=== PATIENT | male | born 1985 | race Caucasian/White ===

== ENCOUNTER 2017-10-14 12:41 | Emergency (ER) | payer OTHER ==
[~2017-10-14] VITALS: Ht 182.9 cm; Wt 90.7 kg
[~2017-10-14 12:41] MED LIST: GILTUSS TR TAB1 EACH PO; ZITHROMAX500 MG PO; ZYRTEC10 MG PO
== END 2017-10-14 20:05 | disposition home or self-care (01) ==
LOC: ER 12:41
DX: K52.89 Other specified noninfective gastroenteritis and colitis (principal); K62.5 Hemorrhage of anus and rectum; R10.32 Left lower quadrant pain

== ENCOUNTER 2017-10-17 10:01 | Outpatient (CLI) | payer OTHER | END 2017-10-17 10:10 | disposition home or self-care (01) | LOC: TOM 10:01 | DX: H70.12 Chronic mastoiditis, left ear (principal) ==

== ENCOUNTER → 2019-02-03 09:55 | Outpatient (CLI) | payer OTHER | END | disposition home or self-care (01) | LOC: LAB 09:55 | DX: J11.1 Influenza due to unidentified influenza virus with other respiratory manifestations (principal) ==

== ENCOUNTER 2021-02-20 09:15 | Emergency (ER) | payer OTHER ==
[~2021-02-20] VITALS: Ht 182.9 cm; Wt 95.3 kg
== END 2021-02-20 10:16 | disposition home or self-care (01) ==
LOC: ER 09:15
DX: S89.91XA Unspecified injury of right lower leg, initial encounter (principal); Y92.310 Basketball court as the place of occurrence of the external cause; Y93.67 Activity, basketball

== ENCOUNTER → 2021-03-30 | Emergency (ER) | payer OTHER | END | disposition left against medical advice (07) | LOC: ER 08:48 | DX: Z53.20 Procedure and treatment not carried out because of patient's decision for unspecified reasons (principal) ==

== ENCOUNTER 2022-06-07 08:31 | Emergency (ER) | payer OTHER ==
[~2022-06-07] VITALS: Ht 182.9 cm; Wt 89.8 kg
== END 2022-06-07 11:46 | disposition home or self-care (01) ==
LOC: ER 08:31
DX: S63.501A Unspecified sprain of right wrist, initial encounter (principal); W05.2XXA Fall from non-moving motorized mobility scooter, initial encounter; Y93.89 Activity, other specified; Y92.89 Other specified places as the place of occurrence of the external cause; Y99.9 Unspecified external cause status

== ENCOUNTER 2023-04-23 11:06 | Emergency (ER) | payer OTHER ==
[~2023-04-23] VITALS: Ht 182.9 cm; Wt 90.7 kg
[2023-04-23] MEDS ORDERED: KETOROLAC TROMETHAMINE 30 MG VIAL IM STA (12:38)
== END 2023-04-23 14:49 | disposition home or self-care (01) ==
LOC: ER 11:06
DX: M25.522 Pain in left elbow (principal)